=== PATIENT | female | born 1975 | race Caucasian/White ===

== ENCOUNTER 2016-10-10 13:46 | Outpatient (CLI) | payer BC, OTHER ==
[~2016-10-10 13:46] MED LIST: ACYCLOVIR200 MG PO; AMOXICILLIN250 MG PO; ATORVASTATIN CA40 MG PO; COREG12.5 MG PO; CYCLOBENZAPRINE10 MG PO; DIFLUCAN200 MG PO; FENTANYL25 MCG/HR TOP; FLAGYL500 MG PO; HUMULIN N SC; INVOKANA300 MG; LISINOPRIL10 MG PO; NOVOLOG PE100 UNITS/ SC; OXYCODONE HCL E10 MG PO; OXYCONTIN CR15 MG PO; PANTOPRAZOLE SO40 MG PO; PLAVIX75 MG PO; ROZEREM8 MG PO
--- NOTE | 2016-10-10 15:28 | DIAGNOSTIC IMAGING REPORT ---
PROCEDURE: US COMPLETE PELVIC W/TRANSVAG INDICATION: OVARIAN MASS TECHNIQUE: Transabdominal and endovaginal epstein scale and color Doppler sonographic images of the female pelvis were obtained. COMPARISON: None. FINDINGS: TRANSABDOMINAL SCANS: Hysterectomy. Normal kidneys. Right adnexal cyst. TRANSVAGINAL SCANS: Normal vaginal cuff. Left ovary measures 3.9 x 3 x 2.4 cm. Multiple cysts, largest 2.3 cm. Right ovary measures 4.6 x 3.6 x 3.1 cm with two cysts, largest of 2.5 cm. There is vascular flow to both ovaries. No free fluid. IMPRESSION: 1. Bilateral ovarian cysts. 2. Hysterectomy
== END 2016-10-10 23:00 ==
LOC: US SRH 13:46
DX: N83.202 Unspecified ovarian cyst, left side (principal); N83.201 Unspecified ovarian cyst, right side; Z90.710 Acquired absence of both cervix and uterus

== ENCOUNTER 2016-10-29 09:00 | Outpatient (CLI) | payer BC, OTHER ==
--- NOTE | 2016-10-29 12:48 | DIAGNOSTIC IMAGING REPORT ---
PROCEDURE: MG BILATERAL SCREENING W/CAD INDICATION: SCREENING TECHNIQUE: Standard CC and MLO views bilaterally. Computer aided detection was used. COMPARISON: None available. Patient reports history of prior mammogram in 2008. FINDINGS: Mildly dense fibroglandular tissue is present bilaterally. No suspicious densities, areas of architectural distortion, or suspicious microcalcifications. IMPRESSION: 1. Probably normal mammograms without radiographic evidence of malignancy. 2. An addendum will be generated when prior films become available for comparison. RESULT CODE: 0- Incomplete; needs prior studies. A. A negative report should not delay biopsy if a dominant or clinically suspicious mass is present. 10-15% of cancers are not identified by x-ray. B. A negative report may reinforce clinical impression. C. Adenosis and dense breasts may obscure an underlying neoplasm. D. False positive reports average 6-10%. E.. A yearly screening mammogram is recommended. A reminder letter will be scheduled.
== END 2016-10-29 23:00 ==
LOC: MAM SRH 09:00
DX: Z12.31 Encounter for screening mammogram for malignant neoplasm of breast (principal)

== ENCOUNTER 2016-11-07 08:38 | Outpatient (CLI) | payer BC, OTHER ==
--- NOTE | 2016-11-07 10:50 | DIAGNOSTIC IMAGING REPORT ---
PROCEDURE: US ART LOW EXT WITH TAURUS-RIGHT INDICATION: RT LEG CLAUDICATION TECHNIQUE: Preexercise ABIs were performed. Post exercise ABIs were obtained following 34 toe raises. Color Doppler duplex imaging of the right lower extremity was performed. COMPARISON: None. FINDINGS: ABIs: Pre exercise ABIs: Posterior tibial 0.5 and dorsalis pedis 0.6. Post exercise ABIs: Posterior tibial 0.3 and dorsalis pedis 0.2. VESSELS: Mild atherosclerosis. Occluded mid SFA. Triphasic wave form of the external iliac, profunda femoris and common femoral arteries. Monophasic wave form distal to the mid SFA. RIGHT LOWER EXTREMITY PEAK SYSTOLIC VELOCITIES: External iliac: 50 cm/second. Common femoral artery: 73 cm/second. Profunda femoral artery: 219 cm/second. Proximal superficial femoral artery: 22 cm/second. Mid superficial femoral artery: Occluded Distal superficial femoral artery: 22 cm/second. Popliteal artery: 23 cm/second. Proximal posterior tibial artery: 30 cm/second. Proximal anterior tibial artery: 15 cm/second. Distal posterior tibial artery: 10 cm/second. Dorsalis pedis artery: 7 cm/second. IMPRESSION: 1.
== END 2016-11-07 23:00 ==
LOC: US SRH 08:38
DX: I74.3 Embolism and thrombosis of arteries of the lower extremities (principal)

== ENCOUNTER 2016-11-13 16:18 | Outpatient (CLI) | payer BC, OTHER ==
--- NOTE | 2016-11-13 17:00 | DIAGNOSTIC IMAGING REPORT ---
PROCEDURE: XR CHEST 2 VIEW INDICATION: PNEMONIA TECHNIQUE: PA and lateral view. COMPARISON: Chest x-ray 04/14/2015. FINDINGS: Poor inspiration but lungs are clear. Stable mild cardiomegaly with coronary stents . Mediastinum and pulmonary vessels are normal. No effusion. Moderate degenerative changes of the spine. IMPRESSION: 1. Mild cardiomegaly with coronary stents 2. No acute changes
[2016-11-14] MEDS ORDERED: ACYCLOVIR200 MG PO (06:27)
[2016-11-14] MEDS ORDERED: LEVOFLOXACIN750 MG PO (06:35)
[2016-11-14] MEDS ORDERED: PREDNISONE20 MG PO (06:36)
[2016-11-14] MEDS ORDERED: METHOCARBAMOL750 MG PO (06:38)
== END 2016-11-13 23:00 ==
LOC: XR SRH 16:18
DX: J18.9 Pneumonia, unspecified organism (principal); I51.7 Cardiomegaly; Z95.5 Presence of coronary angioplasty implant and graft

== ENCOUNTER 2016-11-14 04:48 | Observation (INO) | payer BC, OTHER ==
[~2016-11-14] VITALS: Ht 160 cm; Wt 83.8 kg
--- NOTE | 2016-11-14 05:48 | DIAGNOSTIC IMAGING REPORT ---
PROCEDURE: XR CHEST 1 VIEW INDICATION: SHORTNESS OF BREATH TECHNIQUE: Portable AP view 05:22 a.m. COMPARISON: Chest x-ray 11/13/2016 FINDINGS: New mild right basilar alveolar infiltrates. Left lung is clear. No effusions. Mild cardiomegaly with coronary stents. Mediastinum and pulmonary vessels are normal. Bony thorax is unremarkable. IMPRESSION: 1. Right basilar pneumonia. 2. Mild cardiomegaly
--- NOTE | 2016-11-14 05:59 | ED ORDER SUMMARY ---
..... Patient: ANNABELLE CONLEY OrderSheet [facility] VisitID: [id number] [place] [address] 41y, F Registration Date/Time: 11/14/2016 ORDER SHEET Weight: 88.9 kg (stated) Allergies: Benadryl, Beta Roya, Statins GENERAL ORDERS: Blood Culture (Yes) (cipro) Urgent (05:11/14/2016 CBradburn R.N. per protocol) (5:10 CBradburn R.N.) CBC w Diff Urgent (05:11/14/2016 CBradburn R.N. per protocol) (5:10 CBradburn R.N.) CMP Urgent (05:11/14/2016 CBradburn R.N. per protocol) (5:10 CBradburn R.N.) UA-Culture if indicated Urgent (:11/14/2016 CBradburn R.N. per protocol) (Ack 5:15 AMcQuoid ER Tech1) Lactic Acid for Sepsis Protocol Urgent (05:11/14/2016 CBradburn R.N. per protocol) (5:10 CBradburn R.N.) Pulse oximeter (05:11/14/2016 CBradburn R.N. per protocol) (5:10 CBradburn R.N.) Chest 1V Urgent (05:11/14/2016 AMcQuoid ER Tech1 verbal order read back to Eagle SANCHEZ) (Ack 5:15 AMcQuoid ER Tech1) (5:25 Leslee) BNP Urgent (05:11/14/2016 AMcQuoid ER Tech1 verbal order read back to Eagle SANCHEZ) (Ack 5:15 AMcQuoid ER Tech1) (5:15 AMcQuoid ER Tech1) D-Dimer Urgent (05:11/14/2016 AMcQuoid ER Tech1 verbal order read back to Eagle SANCHEZ) (Ack 5:15 AMcQuoid ER Tech1) (5:15 AMcQuoid ER Tech1) PTT Urgent (05:11/14/2016 AMcQuoid ER Tech1 verbal order read back to Eagle SANCHEZ) (Ack 5:15 AMcQuoid ER Tech1) (5:15 AMcQuoid ER Tech1) PT with INR Urgent (05:14 11/14/2016 AMcQuoid ER Tech1 verbal order read back to Eagle SANCHEZ) (Ack 5:15 AMcQuoid ER Tech1) (5:15 AMcQuoid ER Tech1) PCT (Procalcitonin) Urgent (05:14 11/14/2016 AMcQuoid ER Tech1 verbal order read back to Eagle SANCHEZ) (Ack 5:15 AMcQuoid ER Tech1) (5:15 AMcQuoid ER Tech1) POC Glucose (one hour after insuliin dose) (06:26 11/14/2016 Eagle SANCHEZ) MEDICATION ORDERS: DuoNeb Neb Tx 1 unit dose (NOW) (05:57 11/14/2016 Eunice R.NAbril verbal order read back to Eagle SANCHEZ) (6:07 Eunice R.N.) IV FLUIDS: IV Saline Lock (05:10 11/14/2016 Eunice R.NAbril per protocol) (5:10 Eunice R.N.) Solu-MEDROL IV 125 mg (NOW) (06:12 11/14/2016 Eagle SANCHEZ) (7:09 Milagro R.N.) Levaquin IV 750 mg/150 mL (NOW) (06:14 11/14/2016 Eagle SANCHEZ) (7:10 Milagro R.N.) Insulin Reg IV 4 units (NOW) (06:26 11/14/2016 Eagle SANCHEZ) (7:04 Eunice R.N.) ORDER SHEET NOTES: [Electronically signed by Kathryn Jimenes R.N. (07:12 11/14/2016)] [Electronically signed by Martin De Leon MD (08:34 11/14/2016)] [Electronically locked/signed by Kathryn Jimenes R.N. (07:12 11/14/2016)]
--- NOTE | 2016-11-14 05:59 | ED NURSING NOTES ---
Clinical Report - Nurses [facility] [address] [place] [address] 11/14/2016 4:48 Patient: ANNABELLE CONLEY TRIAGE Triage time 04:53. Acuity: LEVEL 3. Chief Complaint: COUGH and FEVER and WHEEZING. --05:04 Kathryn Jimenes R.N. 04:53 11/14/16. BP: 144/101 taken on the left arm, while lying. HR: 93 (regular and normal rate). RR: 22. O2 saturation: 93% on room air. Temp: 97.9 F (oral). Pain level now: 10/17. --05:04 Kathryn Jimenes R.N. Weight: 88.9 kg stated. Height/Length: 63 inches Per Patient. BMI: 34.7. --04:56 Kathryn Jimenes R.N. Medications ASA 325 mg. Carvedilol Phosphate ER Oral, BID. Cyclobenzaprine HCl ER Oral. Invokana Oral. Lasix Oral 60mg, 2x a day. Lisinopril Oral 40 mg, daily. MetFORMIN HCl Oral (Tablet 1000 mg) 1 tablet, 2x a day. Methocarbamol Oral. Percocet Oral (Tablet 10-325 mg) 1 tablet, 4x a day as needed. Plavix Oral (Tablet 75 mg) 1 tablet, daily. --04:57 Kathryn Jimenes R.N. OxyCONTIN Oral 15mg, 2x a day. --04:59 Kathryn Jimenes R.N. Ciprofloxacin-Ciproflox HCl ER Oral, daily. --05:01 Kathryn Jimenes R.N. PredniSONE Oral 30mg (taper). --05:02 Kathryn Jimenes R.N. Allergies Benadryl. (IV only) Beta Roya. --04:59 Kathryn Jimenes R.N. Statins. Definite Severe (seizures) --05:00 Kathryn Jimenes R.N. History Arrived by private vehicle. Historian: patient. Accompanied by family. Primary physician (Duane). Onset was gradual. (2 weeks). ( been on 3 abx therapies without relief,). She has had chest congestion, chills and fatigue. 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 Recently seen in a medical facility; treatment- antibiotic. PAST MEDICAL HX: Immunizations: up-to-date. Last normal menstrual period- 10 years ago. SOCIAL HX: Never smoker. Occasional alcohol use. No drug use. No infectious disease exposure. ABUSE ASSESSMENT: No report of abuse. SELF HARM ASSESSMENT: A self harm assessment was performed. The patient answered "no" to the question "Have you recently felt down, depressed, or hopeless?", "Have you noticed less interest or pleasure in doing things?", "Do you have thoughts of harming or killing yourself?", "Are you here because you tried to hurt yourself?", "Have you ever tried to hurt yourself before today?", "Have you recently had thoughts about harming or killing others?" and "Do you have any dangerous items in your possession?". FALL RISK ASSESSMENT: Fall risk assessment completed. No fall risk identified. NUTRITIONAL RISK ASSESSMENT: The nutritional risk assessment revealed no deficiencies. FUNCTIONAL ASSESSMENT: Functional assessment: no impairments noted. LEARNING NEEDS ASSESSMENT: The learning needs assessment revealed no barriers. SKIN INTEGRITY ASSESSMENT: Skin integrity risk assessment completed. No skin integrity risk identified. --05:04 Kathryn Jimenes R.N. PROBLEMS: Abscess. Arthritis. Congestive Heart Failure. Diabetes Mellitus. --05:01 Kathryn Jimenes R.N. ADDITIONAL SURGERIES: Coronary Artery Bypass Graft. Heart surgery. Hysterectomy. --05:01 Kathryn Jimenes R.N. Interventions ID band on patient. --05:04 Kathryn Jimenes R.N. PHYSICAL ASSESSMENT Ambulatory to room. GENERAL / NEURO / PSYCH: Alert. Oriented X 4. Appears in no acute distress. HEENT: Pupils equal, round and reactive to light. Ears within normal limits. Nares within normal limits. Mouth within normal limits upon inspection. Pharynx within normal limits. Voice within normal limits. Mucous membranes are pink. RESPIRATORY: Moderate respiratory distress. The patient can speak in full sentences. Wheezes bilaterally. Nonproductive cough. CVS: Normal sinus rhythm noted. Capillary refill less than 2 seconds. SKIN: Skin is warm and dry. Normal skin turgor. --05:05 Kathryn Jimenes R.N. NURSING PROGRESS NOTES Monitoring of patient in place. Patient gowned. Reassurance given to the patient and patient's family. Two patient identifiers checked. Call light placed in reach. Side rails up x 1. Bed placed in lowest position. Brakes of bed on. Patient ready for evaluation- chart flagged. --05:06 Kathryn Jimenes R.N. 05:00 11/14/2016 Site #1 started via IV in the right antecubital space with an 20g angiocath, with aseptic technique and good blood return; one attempt. Blood drawn: rainbow set. Labeled in the presence of the patient and sent to the lab. Saline lock flushed with 10 mL saline. --05:10 Kathryn Jimenes R.N. ( RT at bedside). --05:13 Kathryn Jimenes R.N. ( MD at bedside for eval). Two patient identifiers checked. Call light placed in reach. Side rails up x 1. Bed placed in lowest position. Brakes of bed on. --06:00 Kathryn Jimenes R.N. 06:07 11/14/2016 Duoneb (Ipratropium-Albuterol) Neb TX Nebulizer 1 unit dose given. Given by the respiratory therapist. Allergies verified and confirmed 5 rights. --06:07 Kathryn Jimenes R.N. ( RT at bedside for breathing treatment per MD order). --06:07 Kathryn Jimenes R.N. 06:12 11/14/2016 Duoneb Neb TX discontinued due to improvement in patient condition. --07:06 Kathryn Jimenes R.N. 07:04 11/14/2016 Insulin Reg IV 4 units (NOW) was refused by patient because of states does not work (pt reports does not take insulin of any kind). Kathryn Jimenes --07:04 Kathryn Jimenes R.N. 07:04 11/14/2016 IV Saline Lock Drip IV Continued: upon admission at the rate of 0 mL/hr. 0 mL remaining. IV patency established. IV site checked: no pain, redness, or swelling. IV flushed thoroughly. --07:05 Kathryn Jimenes R.N. 07:06 11/14/2016 Site #[address] upon admission; patent, no pain and no signs of infection or infiltration. Good blood return present. --07:06 Kathryn Jimenes R.N. 07:09 11/14/2016 SOLU-MEDROL (MethylPREDNISolone Sodium Succ) IVP 125 mg given over 2 minute(s) via site #1. Allergies verified and confirmed 5 rights. IV patency established. IV site checked: no pain, redness, or swelling. IV flushed thoroughly pre- and post-medication administration. IVP given by RN. --07:09 Emy Sy R.N. 07:10 11/14/2016 Started 750 mg of Levaquin (Levofloxacin) IVPB in bag #1 150 mL; at 100 mL/hr over 90 minute(s) via site #1 via IV pump. Allergies verified and confirmed 5 rights. IV patency established. IV site checked: no pain, redness, or swelling. IV flushed thoroughly pre- and post-medication administration. --07:10 Emy Sy R.N. 07:12 11/14/2016 Levaquin IVPB Continued: upon admission at the rate of 75 mL/hr. 150 mL remaining bag #1. IV patency established. IV site checked: no pain, redness, or swelling. IV flushed thoroughly. --07:12 Kathryn Jimenes R.N. DISPOSITION / DISCHARGE Transported via stretcher by [facility] with IV. Report was given to a nurse via a phone call. Report included patient's care, treatment, medications, reviewed medication reconcilliation, and condition (including any recent changes or anticipated changes). All questions were answered. Report was acknowledged and care was transferred. Patient's personal items; items were transported with the patient. --06:59 Kathryn Jimenes R.N. 06:58 11/14/16. BP: 138/91. HR: 96 (regular and normal rate). RR: 18 (regular and unlabored). O2 saturation: 93%. Temp: deferred. Pain level now: 07/20. --06:59 Kathryn Jimenes R.N. Report was given. (Magalis MATA). --07:00 Kathryn Jimenes R.N. Departure time: 07:12. --07:12 Kathryn Jimenes R.N. Locked/Released at 11/14/2016 7:12 by Kathryn Jimenes R.N.
--- NOTE | 2016-11-14 05:59 | ED ORDER SUMMARY ---
..... Patient: ANNABELLE CONLEY OrderSheet [facility] VisitID: [id number] [place] [address] 41y, F Registration Date/Time: 11/14/2016 ORDER SHEET Weight: 88.9 kg (stated) Allergies: Benadryl, Beta Roya, Statins GENERAL ORDERS: Blood Culture (Yes) (cipro) Urgent (05:11/14/2016 CBradburn R.N. per protocol) (5:10 CBradburn R.N.) CBC w Diff Urgent (05:11/14/2016 CBradburn R.N. per protocol) (5:10 CBradburn R.N.) CMP Urgent (05:11/14/2016 CBradburn R.N. per protocol) (5:10 CBradburn R.N.) UA-Culture if indicated Urgent (:11/14/2016 CBradburn R.N. per protocol) (Ack 5:15 AMcQuoid ER Tech1) Lactic Acid for Sepsis Protocol Urgent (05:11/14/2016 CBradburn R.N. per protocol) (5:10 CBradburn R.N.) Pulse oximeter (05:11/14/2016 CBradburn R.N. per protocol) (5:10 CBradburn R.N.) Chest 1V Urgent (05:11/14/2016 AMcQuoid ER Tech1 verbal order read back to Eagle SANCHEZ) (Ack 5:15 AMcQuoid ER Tech1) (5:25 Leslee) BNP Urgent (05:11/14/2016 AMcQuoid ER Tech1 verbal order read back to Eagle SANCHEZ) (Ack 5:15 AMcQuoid ER Tech1) (5:15 AMcQuoid ER Tech1) D-Dimer Urgent (05:11/14/2016 AMcQuoid ER Tech1 verbal order read back to Eagle SANCHEZ) (Ack 5:15 AMcQuoid ER Tech1) (5:15 AMcQuoid ER Tech1) PTT Urgent (05:11/14/2016 AMcQuoid ER Tech1 verbal order read back to Eagle SANCHEZ) (Ack 5:15 AMcQuoid ER Tech1) (5:15 AMcQuoid ER Tech1) PT with INR Urgent (05:14 11/14/2016 AMcQuoid ER Tech1 verbal order read back to Eagle SANCHEZ) (Ack 5:15 AMcQuoid ER Tech1) (5:15 AMcQuoid ER Tech1) PCT (Procalcitonin) Urgent (05:14 11/14/2016 AMcQuoid ER Tech1 verbal order read back to Eagle SANCHEZ) (Ack 5:15 AMcQuoid ER Tech1) (5:15 AMcQuoid ER Tech1) POC Glucose (one hour after insuliin dose) (06:26 11/14/2016 Eagle SANCHEZ) MEDICATION ORDERS: DuoNeb Neb Tx 1 unit dose (NOW) (05:57 11/14/2016 Eunice R.NAbril verbal order read back to Eagle SANCHEZ) (6:07 Eunice R.N.) IV FLUIDS: IV Saline Lock (05:10 11/14/2016 Eunice R.NAbril per protocol) (5:10 Eunice R.N.) Solu-MEDROL IV 125 mg (NOW) (06:12 11/14/2016 Eagle SANCHEZ) (7:09 Milagro R.N.) Levaquin IV 750 mg/150 mL (NOW) (06:14 11/14/2016 Eagle SANCHEZ) (7:10 Milagro R.N.) Insulin Reg IV 4 units (NOW) (06:26 11/14/2016 Eagle SANCHEZ) (7:04 Eunice R.N.) ORDER SHEET NOTES: [Electronically signed by Kathryn Jimenes R.N. (07:12 11/14/2016)] [Electronically signed by Martin De Leon MD (08:34 11/14/2016)] [Electronically locked/signed by Kathryn Jimenes R.N. (07:12 11/14/2016)]
[2016-11-14] MEDS ORDERED: ACYCLOVIR200 MG PO (06:27)
[2016-11-14] MEDS ORDERED: LEVOFLOXACIN750 MG PO (06:35)
[2016-11-14] MEDS ORDERED: PREDNISONE20 MG PO (06:36)
[2016-11-14] MEDS ORDERED: METHOCARBAMOL750 MG PO (06:38)
[2016-11-14 07:48] VITALS: BP 133/75
--- NOTE | 2016-11-14 08:35 | ED MED RECONCILIATION SUMMARY ---
Patient: ANNABELLE CONLEY Medication Reconciliation Report [facility] VisitID: [id number] [place] [address] 41y, F Registration Date/Time: 11/14/2016 Weight: 88.9 kg Height/Length: 63 in. BMI: 34.7 ALLERGIES: Benadryl, Beta Roya, Statins The patient's Home Medications are listed below: THE FOLLOWING MEDICATIONS NEED TO BE RECONCILED: ASA 325 mg Carvedilol Phosphate ER Oral, BID Ciprofloxacin-Ciproflox HCl ER Oral, daily Cyclobenzaprine HCl ER Oral Invokana Oral Lasix Oral 60mg, 2x a day Lisinopril Oral 40 mg, daily MetFORMIN HCl Oral (1000 mg) 1 tablet, 2x a day Methocarbamol Oral OxyCONTIN Oral 15mg, 2x a day Percocet Oral (10-325 mg) 1 tablet, 4x a day Plavix Oral (75 mg) 1 tablet, daily PredniSONE Oral 30mg, taper The source(s) of the original Home Medication information: Not obtained. The following Medications were given to the patient in the Emergency Department: Duoneb [Neb Tx] Neb TX 1 unit dose, administered: 11/14/2016 6:07:00 AM SOLU-MEDROL [IVP] IVP 125 mg, administered: 11/14/2016 7:09:00 AM Levaquin [IVPB] IVPB bolus 0, then 750 mg 100 mL/hr, administered: 11/14/2016 7:10:00 AM The following Medications were prescribed to the patient: None.
--- NOTE | 2016-11-14 08:35 | ED DISCHARGE INSTRUCTIONS ---
Patient: ANNABELLE CONLEY General Instructions [facility] VisitID: [id number] [address] [place] [address] 41y, F Registration Date/Time: 11/14/2016 Dyspnea. Pneumonia. (Electronically signed by Martin De Leon MD 11/14/2016 8:35)
--- NOTE | 2016-11-14 08:35 | ED MED RECONCILIATION SUMMARY ---
Patient: ANNABELLE CONLEY Medication Reconciliation Report [facility] VisitID: [id number] [place] [address] 41y, F Registration Date/Time: 11/14/2016 Weight: 88.9 kg Height/Length: 63 in. BMI: 34.7 ALLERGIES: Benadryl, Beta Roya, Statins The patient's Home Medications are listed below: THE FOLLOWING MEDICATIONS NEED TO BE RECONCILED: ASA 325 mg Carvedilol Phosphate ER Oral, BID Ciprofloxacin-Ciproflox HCl ER Oral, daily Cyclobenzaprine HCl ER Oral Invokana Oral Lasix Oral 60mg, 2x a day Lisinopril Oral 40 mg, daily MetFORMIN HCl Oral (1000 mg) 1 tablet, 2x a day Methocarbamol Oral OxyCONTIN Oral 15mg, 2x a day Percocet Oral (10-325 mg) 1 tablet, 4x a day Plavix Oral (75 mg) 1 tablet, daily PredniSONE Oral 30mg, taper The source(s) of the original Home Medication information: Not obtained. The following Medications were given to the patient in the Emergency Department: Duoneb [Neb Tx] Neb TX 1 unit dose, administered: 11/14/2016 6:07:00 AM SOLU-MEDROL [IVP] IVP 125 mg, administered: 11/14/2016 7:09:00 AM Levaquin [IVPB] IVPB bolus 0, then 750 mg 100 mL/hr, administered: 11/14/2016 7:10:00 AM The following Medications were prescribed to the patient: None.
--- NOTE | 2016-11-14 08:35 | ED DISCHARGE INSTRUCTIONS ---
Patient: ANNABELLE CONLEY General Instructions [facility] VisitID: [id number] [address] [place] [address] 41y, F Registration Date/Time: 11/14/2016 Dyspnea. Pneumonia. (Electronically signed by Martin De Leon MD 11/14/2016 8:35)
--- NOTE | 2016-11-14 08:35 | ED CLINICAL REPORT ---
Clinical Report - Physicians/Mid Levels [facility] [address] [place] [address] 11/14/2016 4:48 Patient: ANNABELLE CONLEY Time Seen: 05:00. Arrived- By private vehicle. Historian- patient and patient's physician. HISTORY OF PRESENT ILLNESS Chief Complaint: DYSPNEA. This started about 2 weeks ago and is still present. It was gradual in onset and has been constant and waxing/waning. The dyspnea is severe and is worsened by being in a supine position and is improved with oxygen. The patient has had a cough, fever, wheezing, chills and dyspnea on exertion. She has had orthopnea. No sputum production, sweating episodes, calf pain or foot swelling. (she reports that she is not able to lie flat and has not been able to get more than an hour of sleep due to her severe shortness of breath). REVIEW OF SYSTEMS The patient has had black stools. All systems otherwise negative, except as recorded above. PAST HISTORY PCP - Osman. Problems: Psoriatic arthritis. Abscess. Arthritis. Congestive Heart Failure. Diabetes Mellitus. Additional Surgeries: Coronary Artery Bypass Graft. Heart surgery. Hysterectomy. Medications: PredniSONE Oral 30mg (taper). Ciprofloxacin-Ciproflox HCl ER Oral, daily. OxyCONTIN Oral 15mg, 2x a day. ASA 325 mg. Carvedilol Phosphate ER Oral, BID. Cyclobenzaprine HCl ER Oral. Invokana Oral. Lasix Oral 60mg, 2x a day. Lisinopril Oral 40 mg, daily. MetFORMIN HCl Oral (Tablet 1000 mg) 1 tablet, 2x a day. Methocarbamol Oral. Percocet Oral (Tablet 10-325 mg) 1 tablet, 4x a day as needed. Plavix Oral (Tablet 75 mg) 1 tablet, daily. Allergies: Benadryl. (IV only) Beta Roya. Statins. Definite Severe (seizures). SOCIAL HISTORY Former smoker, end date 2012. Occasional alcohol use. No drug use. FAMILY HISTORY Heart disease in grandparent; emphysema in grandparent. ADDITIONAL NOTES The nursing notes have been reviewed. PHYSICAL EXAM Vital Signs: 11/14/2016 04:53 BP: 144/101. HR: 93. RR: 22. O2 saturation: 93%. Temp: 97.9 F. Pain level now: 10/17. Have been reviewed. Appearance: Alert. Eyes: Pupils equal, round and reactive to light. ENT: Pharynx normal. CVS: Normal heart rate and rhythm. Heart sounds normal. Respiratory: Prolonged expirations. Decreased air movement. Wheezing present. Rales in the right mid-lung posteriorly. Abdomen: Soft and nontender. No organomegaly. Back: Normal inspection. Skin: Skin warm and dry. Normal skin color. Normal skin turgor. Extremities: Extremities exhibit normal ROM. No calf tenderness. No lower extremity edema. LABS, X-RAYS, AND EKG Chest X-ray: (IMPRESSION: 1. Right basilar pneumonia. 2. Mild cardiomegaly). The X-rays were interpreted by the radiologist and contemporaneously by me. Laboratory Tests: CBC w Diff: (RYNE: 11/14/2016 05:00) ( [facility] Final results Test Result Flag Units (Reference) WHITE BLOOD COUNT 17.5 H K/uL (4.5-11.5) RED BLOOD COUNT 5.89 H M/uL (4.00-5.20) HEMOGLOBIN 16.6 H gm/dL (12.0-16.0) HEMATOCRIT 49.2 H % (36.0-46.0) MEAN CELL VOLUME 84 fL (80-100) MEAN CORPUSCULAR HGB 28 pg (26-34) MEAN CORPUSCULAR HGB CONC 34 g/dL (31-37) RED CELL DISTRIBUTION WIDTH 13.9 % (11.6-14.8) PLATELET COUNT 249 K/uL (150-400) NEUTROPHIL % 78.3 H % (50-75) LYMPH % 13.5 L % (25-40) MONO % 7.5 % (3-14) EOSINOPHIL % 0.4 % (0-4) BASOPHIL % 0.3 % (0-2) PT with INR: (RYNE: 11/14/2016 05:00) ( [facility] 05:27) Final results Test Result Flag Units (Reference) INR 1.0 (0.8-1.2) Low Intensity Therapy: INR 1.5-2.0 PT range 18.5-23.1Mod.Intensity Therapy: INR 2.0-3.0 PT range 23.1-31.5High Intensity Therapy: INR 2.5-3.5 PT range 27.4-35.5High Intensity Therapy 2: INR 3.0-4.0 PT range 31.5-39.3 APTT 26 SECONDS (24-34) D-DIMER QUANTITATIVE < 0.27 L ug/mLFEU (0.27-0.52) The primary value of this quantitative assay relates toits negative predictive value (i.e. exclusion) of pulmonaryembolism/deep vein thrombosis/DIC.Elevated levels of d-dimer may also occur with:, age, cancer, inflammation, liver disease,post-op, infection, hematoma, coronary disease, peripheralarteriopathy, bleeding disorders and thrombolytic treatment.Results should be correlated with other clinical andradiological data.Testing Methodology: Latex Immunoassay BNP: (RYNE: 11/14/2016 05:00) ( TngRcvd 11/14/2016 05:41) Final results Test Result Flag Units (Reference) B-TYPE NATRIURETIC PEPTIDE 91.9 pg/ml (5-100) [id number]: (RYNE: 11/14/2016 05:00) ( MsgRcvd 11/14/2016 05:59) Final results Test Result Flag Units (Reference) PROCALCITONIN <0.5 ng/mL (0-0.5) PCT Concentration: Interpretation : Risk/option for action PCT <=0.5 ng/mL : Systemic : Low risk forinfection(sepsis): progression to severeis not likely. : systemic infection.Local bacterial : CAUTION-PCT levelsinfection is : below 0.5 ng/mL do notpossible. : exclude an infection,because localizedinfections (withoutsystemic signs) may beassociated with suchlow levels. If PCT ismeasured very earlyafter a bacterialchallenge (usually <6hours), these valuesmay still be low. Inthis case PCT shouldbe re-assessed 6-24hours later. PCT >0.5 and : Systemic infection: Moderate risk for<= 2 ng/mL : (sepsis) is : progression to severepossible, but : systemic infection.other conditions : The patient should beare known to : closely monitoredelevate PCT. : both clinically andby re-assessing PCTwithin 6-24 hours. PCT > 2 ng/mL : Systemic infection: High risk for(sepsis) is likely: progression to severeunless other : systemic infection.causes are known. : PCT >= 10 ng/mL : Important systemic: High likelihood ofinflammatory : severe sepsis orresponse, almost : septic shock.exclusively due to:severe bacterial :sepsis or septic :shock. : [id number]: (RYNE: 11/14/2016 05:00) ( MsgRcvd 11/14/2016 05:48) Final results Test Result Flag Units (Reference) LACTIC ACID SEPSIS PROTOCOL 1.4 mmol/L (0.4-2.0) CMP: (RYNE: 11/14/2016 05:00) ( MsgRcvd 11/14/2016 05:29) Final results Test Result Flag Units (Reference) GLUCOSE 370 H mg/dL (70-110) BUN 10 mg/dL (7-18) CREATININE 0.5 L mg/dL (0.6-1.3) Estimated GFR >60 mL/min Estimated GFR- >60 mL/min Note: Persistent reduction over 3 months in eGFR<60 mL/min/1.73 m2 defines CKD. Patients with eGFR values>=60 mL/min/1.73 m2 may also have CKD if evidence ofpersistent proteinuria. Additional information may be foundat www.kidney.org. SODIUM 134 L mmol/L (136-145) POTASSIUM 4.1 mmol/L (3.5-5.1) CHLORIDE 98 mmol/L (98-107) CARBON DIOXIDE 25 mmol/L (21-32) CALCIUM 9.0 mg/dL (8.5-10.1) TOTAL PROTEIN 7.4 g/dL (6.4-8.2) ALBUMIN 3.0 L g/dL (3.3-5.0) BILIRUBIN, TOTAL 0.4 mg/dL (0.0-1.0) ALKALINE PHOSPHATASE 64 U/L (46-116) AST (SGOT) 7 L U/L (15-37) ALT (SGPT) 19 U/L (12-78) . PROGRESS AND PROCEDURES Course of Care: Patient is stable. Discussed case with patient's primary care provider, (Osmna). Reviewed test results and need for additional work-up. Agreed upon treatment plan, need for patient follow-up and decision to place in observation. Patient/family counseled. Old medical records reviewed. [facility] Disposition: Admitted. Observation. CLINICAL IMPRESSION Dyspnea. Pneumonia. (Electronically signed by Martin De Leon MD 11/14/2016 8:35)
--- NOTE | 2016-11-14 08:35 | ED MAR SUMMARY ---
..... Medication Administration Record [facility] [address] [place] [address] Patient: ANNABELLE CONLEY Visit ID: [id number] 41y, F Weight: 88.9 kg Height/Length: 63 in BMI: 34.7 ALLERGIES: Statins, Benadryl, Beta Roya Given 06:07 11/14/2016 Kathryn Jimenes R.N., Stop 06:12 11/14/2016 Kathryn Jimenes R.N. Medication Administered: DUONEB [NEB TX] (IPRATROPIUM-ALBUTEROL), Dose: 1 unit dose Nebulizer Neb TX. Medication Ordered: DuoNeb Neb Tx 1 unit dose (NOW). Given 07:09 11/14/2016 Emy Sy R.N. Medication Administered: SOLU-MEDROL [IVP] (METHYLPREDNISOLONE SODIUM SUCC), Dose: 125 mg IVP over 2 minute(s), Site: #1. Medication Ordered: Solu-MEDROL IV 125 mg (NOW). Start 07:10 11/14/2016 Emy Sy R.N., Continued Upon Admission 07:12 11/14/2016 Kathryn Jimenes R.N. Medication Administered: LEVAQUIN [IVPB] (LEVOFLOXACIN), Dose: 750 mg IVPB over 90 minute(s), Rate: 100 mL/hr, Dispensed: 150 mL bag, Site: #1. Medication Ordered: Levaquin IV 750 mg/150 mL (NOW).
--- NOTE | 2016-11-14 08:35 | ED CLINICAL REPORT ---
Clinical Report - Physicians/Mid Levels [facility] [address] [place] [address] 11/14/2016 4:48 Patient: ANNABELLE CONLEY Time Seen: 05:00. Arrived- By private vehicle. Historian- patient and patient's physician. HISTORY OF PRESENT ILLNESS Chief Complaint: DYSPNEA. This started about 2 weeks ago and is still present. It was gradual in onset and has been constant and waxing/waning. The dyspnea is severe and is worsened by being in a supine position and is improved with oxygen. The patient has had a cough, fever, wheezing, chills and dyspnea on exertion. She has had orthopnea. No sputum production, sweating episodes, calf pain or foot swelling. (she reports that she is not able to lie flat and has not been able to get more than an hour of sleep due to her severe shortness of breath). REVIEW OF SYSTEMS The patient has had black stools. All systems otherwise negative, except as recorded above. PAST HISTORY PCP - Osman. Problems: Psoriatic arthritis. Abscess. Arthritis. Congestive Heart Failure. Diabetes Mellitus. Additional Surgeries: Coronary Artery Bypass Graft. Heart surgery. Hysterectomy. Medications: PredniSONE Oral 30mg (taper). Ciprofloxacin-Ciproflox HCl ER Oral, daily. OxyCONTIN Oral 15mg, 2x a day. ASA 325 mg. Carvedilol Phosphate ER Oral, BID. Cyclobenzaprine HCl ER Oral. Invokana Oral. Lasix Oral 60mg, 2x a day. Lisinopril Oral 40 mg, daily. MetFORMIN HCl Oral (Tablet 1000 mg) 1 tablet, 2x a day. Methocarbamol Oral. Percocet Oral (Tablet 10-325 mg) 1 tablet, 4x a day as needed. Plavix Oral (Tablet 75 mg) 1 tablet, daily. Allergies: Benadryl. (IV only) Beta Roya. Statins. Definite Severe (seizures). SOCIAL HISTORY Former smoker, end date 2012. Occasional alcohol use. No drug use. FAMILY HISTORY Heart disease in grandparent; emphysema in grandparent. ADDITIONAL NOTES The nursing notes have been reviewed. PHYSICAL EXAM Vital Signs: 11/14/2016 04:53 BP: 144/101. HR: 93. RR: 22. O2 saturation: 93%. Temp: 97.9 F. Pain level now: 10/17. Have been reviewed. Appearance: Alert. Eyes: Pupils equal, round and reactive to light. ENT: Pharynx normal. CVS: Normal heart rate and rhythm. Heart sounds normal. Respiratory: Prolonged expirations. Decreased air movement. Wheezing present. Rales in the right mid-lung posteriorly. Abdomen: Soft and nontender. No organomegaly. Back: Normal inspection. Skin: Skin warm and dry. Normal skin color. Normal skin turgor. Extremities: Extremities exhibit normal ROM. No calf tenderness. No lower extremity edema. LABS, X-RAYS, AND EKG Chest X-ray: (IMPRESSION: 1. Right basilar pneumonia. 2. Mild cardiomegaly). The X-rays were interpreted by the radiologist and contemporaneously by me. Laboratory Tests: CBC w Diff: (RYNE: 11/14/2016 05:00) ( [facility] 11/14/2016 05:18) Final results Test Result Flag Units (Reference) WHITE BLOOD COUNT 17.5 H K/uL (4.5-11.5) RED BLOOD COUNT 5.89 H M/uL (4.00-5.20) HEMOGLOBIN 16.6 H gm/dL (12.0-16.0) HEMATOCRIT 49.2 H % (36.0-46.0) MEAN CELL VOLUME 84 fL (80-100) MEAN CORPUSCULAR HGB 28 pg (26-34) MEAN CORPUSCULAR HGB CONC 34 g/dL (31-37) RED CELL DISTRIBUTION WIDTH 13.9 % (11.6-14.8) PLATELET COUNT 249 K/uL (150-400) NEUTROPHIL % 78.3 H % (50-75) LYMPH % 13.5 L % (25-40) MONO % 7.5 % (3-14) EOSINOPHIL % 0.4 % (0-4) BASOPHIL % 0.3 % (0-2) PT with INR: (RYNE: 11/14/2016 05:00) ( [facility] 11/14/2016 05:27) Final results Test Result Flag Units (Reference) INR 1.0 (0.8-1.2) Low Intensity Therapy: INR 1.5-2.0 PT range 18.5-23.1Mod.Intensity Therapy: INR 2.0-3.0 PT range 23.1-31.5High Intensity Therapy: INR 2.5-3.5 PT range 27.4-35.5High Intensity Therapy 2: INR 3.0-4.0 PT range 31.5-39.3 APTT 26 SECONDS (24-34) D-DIMER QUANTITATIVE < 0.27 L ug/mLFEU (0.27-0.52) The primary value of this quantitative assay relates toits negative predictive value (i.e. exclusion) of pulmonaryembolism/deep vein thrombosis/DIC.Elevated levels of d-dimer may also occur with:, age, cancer, inflammation, liver disease,post-op, infection, hematoma, coronary disease, peripheralarteriopathy, bleeding disorders and thrombolytic treatment.Results should be correlated with other clinical andradiological data.Testing Methodology: Latex Immunoassay BNP: (RYNE: 11/14/2016 05:00) ( CogRcvd 11/14/2016 05:41) Final results Test Result Flag Units (Reference) B-TYPE NATRIURETIC PEPTIDE 91.9 pg/ml (5-100) [id number]: (RYNE: 11/14/2016 05:00) ( MsgRcvd 11/14/2016 05:59) Final results Test Result Flag Units (Reference) PROCALCITONIN <0.5 ng/mL (0-0.5) PCT Concentration: Interpretation : Risk/option for action PCT <=0.5 ng/mL : Systemic : Low risk forinfection(sepsis): progression to severeis not likely. : systemic infection.Local bacterial : CAUTION-PCT levelsinfection is : below 0.5 ng/mL do notpossible. : exclude an infection,because localizedinfections (withoutsystemic signs) may beassociated with suchlow levels. If PCT ismeasured very earlyafter a bacterialchallenge (usually <6hours), these valuesmay still be low. Inthis case PCT shouldbe re-assessed 6-24hours later. PCT >0.5 and : Systemic infection: Moderate risk for<= 2 ng/mL : (sepsis) is : progression to severepossible, but : systemic infection.other conditions : The patient should beare known to : closely monitoredelevate PCT. : both clinically andby re-assessing PCTwithin 6-24 hours. PCT > 2 ng/mL : Systemic infection: High risk for(sepsis) is likely: progression to severeunless other : systemic infection.causes are known. : PCT >= 10 ng/mL : Important systemic: High likelihood ofinflammatory : severe sepsis orresponse, almost : septic shock.exclusively due to:severe bacterial :sepsis or septic :shock. : [id number]: (RYNE: 11/14/2016 05:00) ( MsgRcvd 11/14/2016 05:48) Final results Test Result Flag Units (Reference) LACTIC ACID SEPSIS PROTOCOL 1.4 mmol/L (0.4-2.0) CMP: (RYNE: 11/14/2016 05:00) ( MsgRcvd 11/14/2016 05:29) Final results Test Result Flag Units (Reference) GLUCOSE 370 H mg/dL (70-110) BUN 10 mg/dL (7-18) CREATININE 0.5 L mg/dL (0.6-1.3) Estimated GFR >60 mL/min Estimated GFR- >60 mL/min Note: Persistent reduction over 3 months in eGFR<60 mL/min/1.73 m2 defines CKD. Patients with eGFR values>=60 mL/min/1.73 m2 may also have CKD if evidence ofpersistent proteinuria. Additional information may be foundat www.kidney.org. SODIUM 134 L mmol/L (136-145) POTASSIUM 4.1 mmol/L (3.5-5.1) CHLORIDE 98 mmol/L (98-107) CARBON DIOXIDE 25 mmol/L (21-32) CALCIUM 9.0 mg/dL (8.5-10.1) TOTAL PROTEIN 7.4 g/dL (6.4-8.2) ALBUMIN 3.0 L g/dL (3.3-5.0) BILIRUBIN, TOTAL 0.4 mg/dL (0.0-1.0) ALKALINE PHOSPHATASE 64 U/L (46-116) AST (SGOT) 7 L U/L (15-37) ALT (SGPT) 19 U/L (12-78) . PROGRESS AND PROCEDURES Course of Care: Patient is stable. Discussed case with patient's primary care provider, (Osman). Reviewed test results and need for additional work-up. Agreed upon treatment plan, need for patient follow-up and decision to place in observation. Patient/family counseled. Old medical records reviewed. [facility] Disposition: Admitted. Observation. CLINICAL IMPRESSION Dyspnea. Pneumonia. (Electronically signed by Martin De Leon MD 11/14/2016 8:35)
--- NOTE | 2016-11-14 08:35 | ED MAR SUMMARY ---
..... Medication Administration Record [facility] [address] [place] [address] Patient: ANNABELLE CONLEY Visit ID: [id number] 41y, F Weight: 88.9 kg Height/Length: 63 in BMI: 34.7 ALLERGIES: Statins, Benadryl, Beta Roya Given 06:07 11/14/2016 Kathryn Jimenes R.N., Stop 06:12 11/14/2016 Kathryn Jimenes R.N. Medication Administered: DUONEB [NEB TX] (IPRATROPIUM-ALBUTEROL), Dose: 1 unit dose Nebulizer Neb TX. Medication Ordered: DuoNeb Neb Tx 1 unit dose (NOW). Given 07:09 11/14/2016 Emy Sy R.N. Medication Administered: SOLU-MEDROL [IVP] (METHYLPREDNISOLONE SODIUM SUCC), Dose: 125 mg IVP over 2 minute(s), Site: #1. Medication Ordered: Solu-MEDROL IV 125 mg (NOW). Start 07:10 11/14/2016 Emy Sy R.N., Continued Upon Admission 07:12 11/14/2016 Kathryn Jimenes R.N. Medication Administered: LEVAQUIN [IVPB] (LEVOFLOXACIN), Dose: 750 mg IVPB over 90 minute(s), Rate: 100 mL/hr, Dispensed: 150 mL bag, Site: #1. Medication Ordered: Levaquin IV 750 mg/150 mL (NOW).
--- NOTE | 2016-11-22 02:35 | DISCHARGE SUMMARY ---
ADMIT DATE: 11/14/2016 DISCHARGE DATE: 11/14/2016 dDISCHARGE DIAGNOSES:/DISCHARGE INSTRUCTIONS/PLAN: The patient was admitted to me from the emergency department for severe pneumonia. Before I was able to see this patient for the admission and she decided to leave against medical advice.
== END 2016-11-14 09:00 | disposition left against medical advice (07) ==
LOC: ED SRH 04:48 → TRANS SRH 06:01 → ACUTE2 SRH 07:15
PROVIDERS: ADMIT Family Medicine
DX: J18.9 Pneumonia, unspecified organism (principal); E11.65 Type 2 diabetes mellitus with hyperglycemia; Z79.84 Long term (current) use of oral hypoglycemic drugs; I50.9 Heart failure, unspecified; L40.50 Arthropathic psoriasis, unspecified
CPT/HCPCS: 29230; 90065; 90100; 91320; 91556; 92031; 93004; 94001; 94060; 95059